=== PATIENT | male | born 1965 | race Caucasian/White ===

== ENCOUNTER 2016-07-20 07:43 | Inpatient (IN) | payer MEDICAID ==
[2016-07-20 07:44] VITALS: BMI 31.5
[2016-07-20 08:37] LABS: BASO # 0.1 K/uL (0.0-0.2); BASO % 1.3 % (0.0-2.0); EOS # 0.1 K/uL (0.0-0.7); EOS % 1.6 % (0.0-4.0); LYMPH % 21.3 % (20.0-40.0); MEAN CORPUSCULAR HEMOGLOBIN 27.7 pg (27.0-31.0); MEAN CORPUSCULAR HGB CONC 34.2 g/dL (33.0-37.0); MEAN PLATELET VOLUME 10.2 fL (7.2-11.7); MONO # 0.9 K/uL (0.0-0.8); MONO % 9.4 % (0.0-10.0); NRBC % 0.1 % (0.0-2.0); RED CELL DISTRIBUTION WIDTH 13.7 % (11.5-14.5); WHITE BLOOD COUNT 9.5 K/uL (4.8-10.8)
[2016-07-20 08:50] LABS: CHLORIDE 103 mmol/L (98-107)
[2016-07-20 08:51] LABS: POTASSIUM 3.9 mmol/L (3.6-5.2); SODIUM 135 mmol/L (132-148)
[2016-07-20 08:53] LABS: MEAN CELL VOLUME 81.1 fL (80.0-94.0)
[2016-07-20 08:54] LABS: ALKALINE PHOSPHATASE 62 U/L (38-126); ALT/SGPT 94 U/L (21-72); AST/SGOT 37 U/L (17-59); BILIRUBIN,TOTAL 0.9 mg/dL (0.2-1.3); BLOOD UREA NITROGEN 21 mg/dL (9-20); CALCIUM 8.8 mg/dl (8.6-10.4); CARBON DIOXIDE 22 mmol/L (22-30); GFR AFRICAN-AMERICAN > 60; GLUCOSE,RANDOM 169 mg/dL (75-110)
[2016-07-20 08:55] LABS: RBC URINE 2 /hpf (0-3); URINE BILIRUBIN NEGATIVE (NEGATIVE); URINE BLOOD NEGATIVE (NEGATIVE); URINE COLOR Yellow (YELLOW); URINE GLUCOSE (UA) NORMAL (Normal); URINE KETONE TRACE mg/dL (NEGATIVE); URINE LEUKOCYTE ESTERASE TRACE Leu/uL (Negative); URINE PROTEIN NEGATIVE (NEGATIVE); URINE UROBILINOGEN NORMAL mg/dL (0.2-1.0); WBC URINE 6 /hpf (0-5)
[2016-07-20 08:56] LABS: ALB/GLOB RATIO 2.2 (1.0-2.1)
[2016-07-20] MEDS ORDERED: METHYLPREDNISOLONE IV ONE (09:11)
[2016-07-20] MEDS ORDERED: SODIUM CHLORIDE 0.9% IV ONE (09:11)
[2016-07-20] MEDS ORDERED: MethylPREDNISolone 40 mg Vial ONE (09:29)
--- NOTE | 2016-07-20 09:47 | C.PDOC ---
History Of Present Illness A 51 year old male presents to the emergency room with complaints of gingival bleeding and right leg pain s/p a mechanical fall yesterday. Patient reports that he has a small bruise on the right leg. Patient states that he has history of low platelets once a year for the last 4-5 years and is unsure of the cause. Patient is not on any medications. Patient denies any ETOH use, fever, chills, headaches, dizziness, mouth pain, mouth swelling, or any other complaints. Time Seen by Provider: 07/20/16 07:53 Chief Complaint (Nursing): Lower Extremity Problem/Injury History Per: Patient History/Exam Limitations: no limitations Onset/Duration Of Symptoms: Days (1) Current Symptoms Are (Timing): Still Present Severity: Mild Recent travel outside of the [place]: No Past Medical History Reviewed: Historical Data, Nursing Documentation, Vital Signs Vital Signs: Last Vital Signs Temp 98 F 07/22/16 08:00 Pulse 92 H 07/22/16 08:30 Resp 20 07/22/16 08:00 BP 147/86 07/22/16 08:00 Pulse Ox 98 07/22/16 08:00 - Medical History Other PMH: Thrombocytopenia - [facility] Procedures INJECTION OR INFUSION OF IMMUNOGLOBULIN (02/23/13) PLATELET TRANSFUSION (02/23/13) Family History: States: No Known Family Hx - Social History Hx Tobacco Use: No Hx Alcohol Use: No Hx Substance Use: No Review Of Systems Constitutional: Negative for: Fever, Chills ENT: Positive for: Other (Gingival bleeding) Gastrointestinal: Negative for: Nausea, Vomiting, Diarrhea Musculoskeletal: Positive for: Leg Pain (Right leg pain) Skin: Positive for: Bruising (Small bruise on the right leg) Neurological: Negative for: Headache, Dizziness Physical Exam - Physical Exam Appears: Non-toxic Skin: Warm, Dry, No Rash Head: Atraumatic, Normacephalic Gingiva: No Bleeding Cardiovascular: Rhythm Regular Respiratory: Normal Breath Sounds, No Rales, No Rhonchi, No Wheezing Gastrointestinal/Abdominal: Soft, No Tenderness Extremity: Normal ROM, No Tenderness, Swelling (Moderate swelling with palpable firm mass to the medial right thigh. 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 I have reviewed the chart and agree that the record accurately reflects my personal performance of the history, physical exam, medical decision making, and the department course for this patient. I have also personally directed, reviewed, and agree with the discharge instructions and disposition.
[2016-07-20] MEDS ORDERED: SODIUM CHLORIDE 0.9% IVPB ONE (10:00)
[2016-07-20] MEDS ORDERED: METHYLPREDNISOLONE IVPB ONE (10:00)
--- NOTE | 2016-07-20 13:01 | CP.PCM.HP ---
History of Present Illness - History of Present Illness History of Present Illness: ptadmited fromed for has bleeding gum low blood platletlet and fell has small contusion thigh Present on Admission - Present on Admission Any Indicators Present on Admission: No Review of Systems - Review of Systems Systems not reviewed;Unavailable: Acuity of Condition - Constitutional Constitutional: As Per HPI - EENT Eyes: As Per HPI Ears: As Per HPI Nose/Mouth/Throat: As Per HPI - Cardiovascular Cardiovascular: As Per HPI - Respiratory Respiratory: As Per HPI - Gastrointestinal Gastrointestinal: As Per HPI - Genitourinary Genitourinary: As Per HPI - Reproductive: Male Reproductive:Male: As Per HPI - Musculoskeletal Musculoskeletal: As Per HPI - Integumentary Integumentary: As Per HPI - Neurological Neurological: As Per HPI - Psychiatric Psychiatric: As Per HPI - Endocrine Endocrine: As Per HPI - Hematologic/Lymphatic Hematologic: Easy Bruising Past Patient History - Infectious Disease Hx of Infectious Diseases: None - Past Social History Smoking Status: Never Smoked - PSYCHIATRIC Hx Substance Use: No - SURGICAL HISTORY Hx Surgeries: No - ANESTHESIA Hx Anesthesia: No Meds Allergies/Adverse Reactions: Allergies Allergy/AdvReac Type Severity Reaction Status Date / Time No Known Allergies Allergy Verified 07/20/16 07:46 Results - Vital Signs Recent Vital Signs: Last Vital Signs Temp 97.6 F 07/20/16 11:34 Pulse 90 07/20/16 11:34 Resp 16 07/20/16 11:34 BP 118/80 07/20/16 11:34 Pulse Ox 96 07/20/16 12:08 - Labs Result Diagrams: 07/20/16 08:32 07/20/16 08:32 Assessment & Plan - Assessment and Plan (Free Text) Assessment: ac gum lleeding s/p fall contusion thigh thrombocytheamia Plan: as per orders - Date & Time Date: 07/20/16 Time: 13:03
[2016-07-20] MEDS: MethylPREDNISolone 40 mg Vial IVP SCH (21:33)
--- NOTE | 2016-07-21 01:06 | CP.PCM.CON ---
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 The patient reports to brushing his teeth and noticed bleeding with blood clots coming from his gums. He also notes to a large bruise over his arm after a recent fall. In the ER, the patient was found to have a plt count of 5,000 and admitted. He is currently receiving steroids and his plt count has risen to 24,000. He denies further bleeding. Past medical history: ITP Past surgical history: None Family history: Denies hematologic and oncologic problems Social history: Denies tobacco, alcohol, and illicit drug use. Allergies: NKA Review of systems: All remaining review of systems including HEENT, cardiovsacular, respiratory, gastrointestinal, genitourinary, musculoskeletal, dermatologic, neurologic, and psychiatric are negative unless mentioned in the HPI. Past Patient History - Infectious Disease Hx of Infectious Diseases: None - Past Medical History & Family History Past Medical History?: Yes - Past Social History Smoking Status: Never Smoked - CARDIAC Hx Cardiac Disorders: No - HEMATOLOGICAL/ONCOLOGICAL Hx Anemia: Yes () Hx Blood Transfusions: Yes (platelet transfusion 2012) Hx Blood Transfusion Reaction: No Hx Gum Bleeding: Yes - MUSCULOSKELETAL/RHEUMATOLOGICAL Hx Falls: Yes - GENITOURINARY/GYNECOLOGICAL Hx Hematuria: Yes () - PSYCHIATRIC Hx Substance Use: No - SURGICAL HISTORY Hx Surgeries: No - ANESTHESIA Hx Anesthesia: No Meds Allergies/Adverse Reactions: Allergies Allergy/AdvReac Type Severity Reaction Status Date / Time No Known Allergies Allergy Verified 07/20/16 07:46 - Medications Medications: Current Medications Famotidine (Pepcid) 40 mg PO DAILY [facility] Methylprednisolone (Solu-Medrol) 40 mg IVP Q12 [facility] Last Admin: 07/20/16 21:33 Dose: 40 mg Pneumococcal Polyvalent Vaccine (Pneumovax 23 Vaccine) 0.5 ml IM .ONCE ONE Stop: 07/22/16 10:01 Physical Exam - Head Exam Head Exam: ATRAUMATIC - Eye Exam Eye Exam: Normal appearance - ENT Exam ENT Exam: Mucous Membranes Dry - Respiratory Exam Respiratory Exam: NORMAL BREATHING PATTERN - Cardiovascular Exam Cardiovascular Exam: +S1, +S2 - GI/Abdominal Exam GI & Abdominal Exam: Normal Bowel Sounds - Extremities Exam Extremities exam: Positive for: normal inspection - Neurological Exam Neurological exam: Oriented x3 - Psychiatric Exam Psychiatric exam: Normal Affect, Normal Mood - Skin Skin Exam: Warm Results - Vital Signs Recent Vital Signs: Last Vital Signs Temp 98.1 F 07/20/16 16:00 Pulse 116 H 07/20/16 16:00 Resp 20 07/20/16 16:00 BP 132/81 07/20/16 16:00 Pulse Ox 96 07/20/16 16:00 - Labs Result Diagrams: 07/21/16 08:30 07/20/16 08:32 Assessment & Plan (1) Idiopathic thrombocytopenia purpura Assessment and Plan: Complicated by gingival bleeding and ecchymosis pt responding to steroids pt cleared from hematology standpoint tomorrow if plt >20,000 I have ordered oral prednisone and Pepcid from his local outpatient pharmacy he is to f/u with me Saturday for repeat CBC and steroid taper if plt have normalized Thank you for this interesting consult. Status: Acute
[2016-07-21 08:37] LABS: HEMATOCRIT 40.3 % (35.0-51.0); MEAN CORPUSCULAR HEMOGLOBIN 27.5 pg (27.0-31.0)
[2016-07-21 08:48] LABS: MEAN PLATELET VOLUME 12.2 fL (7.2-11.7); RED CELL DISTRIBUTION WIDTH 13.4 % (11.5-14.5)
[2016-07-21] MEDS: MethylPREDNISolone 40 mg Vial IVP SCH (09:59)
[2016-07-21 13:28] LABS: RBC URINE 1 /hpf (0-3); URINE BILIRUBIN NEGATIVE (NEGATIVE); URINE BLOOD NEGATIVE (NEGATIVE); URINE COLOR Yellow (YELLOW); URINE GLUCOSE (UA) 3+ mg/dL (Normal); URINE KETONE NEGATIVE (NEGATIVE); URINE LEUKOCYTE ESTERASE NEG Leu/uL (Negative); URINE PROTEIN NEGATIVE (NEGATIVE); URINE UROBILINOGEN NORMAL mg/dL (0.2-1.0); WBC URINE 2 /hpf (0-5)
--- NOTE | 2016-07-21 14:01 | RAD ---
Chest x-ray two views History: Leukocytosis. Comparison: None available. Findings: Mild venous congestion. Right basilar atelectasis. Heart size within normal limits. Impression: Mild venous congestion. Right basilar atelectasis.
[2016-07-21] MEDS: methylPREDNISolone 500 MG in Sodium Chloride 0.9% 100 ML IVPB SCH (22:26)
[2016-07-22 07:53] LABS: HEMATOCRIT 39.8 % (35.0-51.0); MEAN CELL VOLUME 81.6 fL (80.0-94.0); MEAN CORPUSCULAR HEMOGLOBIN 27.3 pg (27.0-31.0); MEAN CORPUSCULAR HGB CONC 33.4 g/dL (33.0-37.0); RED CELL DISTRIBUTION WIDTH 13.8 % (11.5-14.5)
[2016-07-22 09:16] VITALS: BP 147/86; RESP 20; TEMP 98
[2016-07-22] MEDS ORDERED: Pneumococcal 23-Valent Vaccine IM ONE (10:00)
[2016-07-22] MEDS: methylPREDNISolone 500 MG in Sodium Chloride 0.9% 100 ML IVPB SCH (10:15)
--- NOTE | 2016-07-22 11:11 | CP.PCM.DIS ---
Provider - Provider Date of Admission: 07/20/16 09:43 Attending physician: Elise Wong MD Primary care physician: pt admited for bleeding gum had platlet 5 had hx of throboctheamia befor no f/u pt received steroids iv and platlet improved 73 today pt feel well physical exam normal exept big area of contusion thigh secandry to fall befor admision discused with consult dr lex pantoja pt will cont athome on prednison 100mg po daily f/u by him dx ac itp Time Spent in preparation of Discharge (in minutes): 30 Hospital Course - Lab Results Lab Results: Most Recent Lab Values WBC 26.0 K/uL (4.8-10.8) H 07/22/16 07:45 RBC 4.88 Mil/uL (4.40-5.90) 07/22/16 07:45 Hgb 13.3 g/dL (12.0-18.0) 07/22/16 07:45 Hct 39.8 % (35.0-51.0) 07/22/16 07:45 MCV 81.6 fL (80.0-94.0) 07/22/16 07:45 MCH 27.3 pg (27.0-31.0) 07/22/16 07:45 MCHC 33.4 g/dL (33.0-37.0) 07/22/16 07:45 RDW 13.8 % (11.5-14.5) 07/22/16 07:45 Plt Count 73 K/uL (130-400) L D 07/22/16 07:45 MPV 11.0 fL (7.2-11.7) 07/22/16 07:45 Neut % (Auto) 66.4 % (50.0-75.0) 07/20/16 08:32 Lymph % (Auto) 21.3 % (20.0-40.0) 07/20/16 08:32 [place] % (Auto) 9.4 % (0.0-10.0) 07/20/16 08:32 Eos % (Auto) 1.6 % (0.0-4.0) 07/20/16 08:32 Baso % (Auto) 1.3 % (0.0-2.0) 07/20/16 08:32 Neut # 6.3 K/uL (1.8-7.0) 07/20/16 08:32 Lymph # 2.0 K/uL (1.0-4.3) 07/20/16 08:32 [place] # 0.9 K/uL (0.0-0.8) H 07/20/16 08:32 Eos # 0.1 K/uL (0.0-0.7) 07/20/16 08:32 Baso # 0.1 K/uL (0.0-0.2) 07/20/16 08:32 Differential Comment 07/21/16 08:30 Smear Path Review 07/20/16 08:32 PT 11.8 SECONDS (9.7-12.2) 07/20/16 08:32 INR 1.0 07/20/16 08:32 APTT 32 SECONDS (21-34) 07/20/16 08:32 Sodium 135 mmol/L (132-148) 07/20/16 08:32 Potassium 3.9 mmol/L (3.6-5.2) 07/20/16 08:32 Chloride 103 mmol/L (98-107) 07/20/16 08:32 Carbon Dioxide 22 mmol/L (22-30) 07/20/16 08:32 Anion Gap 15 (10-20) 07/20/16 08:32 BUN 21 mg/dL (9-20) H 07/20/16 08:32 Creatinine 1.2 MG/DL (0.8-1.5) 07/20/16 08:32 Est GFR ( Amer) > 60 07/20/16 08:32 Est GFR (Non-Af Amer) > 60 07/20/16 08:32 Random Glucose 169 mg/dL (75-110) H 07/20/16 08:32 Calcium 8.8 mg/dl (8.6-10.4) 07/20/16 08:32 Total Bilirubin 0.9 mg/dL (0.2-1.3) 07/20/16 08:32 AST 37 U/L (17-59) 07/20/16 08:32 ALT 94 U/L (21-72) H D 07/20/16 08:32 Alkaline Phosphatase 62 U/L (38-126) 07/20/16 08:32 Total Protein 6.0 g/dL (6.3-8.3) L 07/20/16 08:32 Albumin 4.2 g/dL (3.5-5.0) 07/20/16 08:32 Globulin 1.9 gm/dL (2.2-3.9) L 07/20/16 08:32 Albumin/Globulin Ratio 2.2 (1.0-2.1) H 07/20/16 08:32 Urine Color Yellow (YELLOW) 07/21/16 13:21 Urine Clarity Clear (Clear) 07/21/16 13:21 Urine pH 5.0 (5.0-8.0) 07/21/16 13:21 Ur Specific [place] 1.029 (1.003-1.030) 07/21/16 13:21 Urine Protein Negative mg/dL (NEGATIVE) 07/21/16 13:21 Urine Glucose (UA) 3+ mg/dL (Normal) H 07/21/16 13:21 Urine Ketones Negative mg/dL (NEGATIVE) 07/21/16 13:21 Urine Blood Negative (NEGATIVE) 07/21/16 13:21 Urine Nitrate Negative (NEGATIVE) 07/21/16 13:21 Urine Bilirubin Negative (NEGATIVE) 07/21/16 13:21 Urine Urobilinogen Normal mg/dL (0.2-1.0) 07/21/16 13:21 Ur Leukocyte Esterase Neg Hina/uL (Negative) 07/21/16 13:21 Urine WBC (Auto) 2 /hpf (0-5) 07/21/16 13:21 Urine RBC (Auto) 1 /hpf (0-3) 07/21/16 13:21 Ur Squamous Epith Cells 1 /hpf (0-5) 07/21/16 13:21 Hyaline Casts 3-5 /lpf (0-2) H 07/20/16 08:47 Blood Type O POSITIVE 07/20/16 08:32 Antibody Screen Negative 07/20/16 08:32 Discharge Exam - Head Exam Head Exam: ATRAUMATIC Discharge Plan - Follow Up Plan Condition: FAIR Disposition: HOME/ ROUTINE
[2016-07-22 11:53] VITALS: PULSE 92
[2016-07-22 14:39] VITALS: O2SAT 96
== END 2016-07-22 01:00 | disposition home or self-care (01) | DRG 397 ==
LOC: C.ER 07:43 → C.9E 09:43 → C.3T 11:25
PROVIDERS: ADMIT Internal Medicine; ATTEND Internal Medicine
DX: D69.3 Immune thrombocytopenic purpura (principal); K06.8 Other specified disorders of gingiva and edentulous alveolar ridge; R23.3 Spontaneous ecchymoses; S70.11XA Contusion of right thigh, initial encounter; W19.XXXA Unspecified fall, initial encounter; Y92.9 Unspecified place or not applicable; Z23 Encounter for immunization

== ENCOUNTER 2017-01-14 10:54 | Emergency (ER) | payer MEDICAID ==
[2017-01-14 10:54] VITALS: BMI 31.5
[2017-01-14 11:15] VITALS: BP 112/75; PULSE 86; RESP 18; TEMP 97.8; O2SAT 98
--- NOTE | 2017-01-14 12:39 | C.PDOC ---
History Of Present Illness 51 yr old male presents to the ER for evaluation of right knee pain and swelling , gradually developing for the past 3 days. Patient states the pain localized and mostly to the medial aspect of the knee. Patient states the pain is worse with walking. Denies known direct trauma or injury, fever, denies obvious deformity, weakness , sensory or vascular deficits to the right leg, denies calf pain, no risk factors for DVT or PE. Time Seen by Provider: 01/14/17 11:28 Chief Complaint (Nursing): Lower Extremity Problem/Injury History Per: Patient History/Exam Limitations: no limitations Onset/Duration Of Symptoms: Days (3) Current Symptoms Are (Timing): Still Present Past Medical History Reviewed: Historical Data, Nursing Documentation, Vital Signs Vital Signs: Last Vital Signs Temp 97.8 F 01/14/17 11:12 Pulse 86 01/14/17 11:12 Resp 18 01/14/17 11:12 BP 112/75 01/14/17 11:12 Pulse Ox 98 01/14/17 12:51 - Medical History PMH: Anemia () - [facility] Procedures INJECTION OR INFUSION OF IMMUNOGLOBULIN (02/23/13) PLATELET TRANSFUSION (02/23/13) Family History: States: No Known Family Hx - Social History Hx Tobacco Use: No Hx Alcohol Use: No Hx Substance Use: No - Immunization History Hx Tetanus Toxoid Vaccination: No Hx Influenza Vaccination: Yes Hx Pneumococcal Vaccination: No Review Of Systems Except As Marked, All Systems Reviewed And Found Negative. Constitutional: Negative for: Fever Musculoskeletal: Positive for: Other ((+) Right knee pain and swelling.) Neurological: Negative for: Weakness, Numbness Physical Exam - Physical Exam Appears: Well, Non-toxic, No Acute Distress Skin: Normal Color, Warm, No Rash, No Ecchymosis Extremity: Normal ROM (mild discomfort to Right knee flexion, otherwise FAROMN of Right knee. NO neurovascular deficits.), Tenderness (over medial aspect Right knee with mild effusion. No deformity, no cellulitis, no warm to touch.), No Pedal Edema, No Calf Tenderness, Capillary Refill (less than 2sec to Right foot), No Deformity Neurological/Psych: Oriented x3, Normal Speech, Normal Motor, Normal Sensation, Normal Reflexes ED Course And Treatment O2 Sat by Pulse Oximetry: 98 (RA) Pulse Ox Interpretation: Normal - Other Rad X-Ray - Right Knee X-Ray: Interpreted by Me, Viewed By Me Interpretation: (+) mild DJD with effusion, no acute fx Progress Note: On re-eavluation, pt is afebrile, hemodynamicaly stable. Non- toxic. Right knee: exam c/w Right knee arthralgia with mild effusion. No deformity, no cellulitis. FAROM, no neurovascular deficits. XRay review (+) Mild DJD, no acute fx. Jay wrap applied to Right knee, anti-inflammatory given. Pt advised on course of ds. ref. to F/u with Ortho in 2-3 days for re- eval. return if any new changes. Medical Decision Making Medical Decision Making: PLAN: * X-Ray - Right Knee * Tramadol PO * Prednisone PO Disposition Counseled Patient/Family Regarding: Studies Performed, Diagnosis, Need For Followup, Rx Given - Disposition Referrals: [facility] [Outside] Malcolm Yun III, MD [Staff Provider] - Disposition: HOME/ ROUTINE Disposition Time: 12:30 Condition: STABLE Additional Instructions: LIGHT DUTY TO RIGHT KNEE, AVOID KNEE BENDING/STEPS, ETC. JAY WRAP OR KNEE BRACE FOR 1-2 WEEKS TAKE MEDICATION PRESCRIBED FOLLOW UP WITH ORTHOPEDIST IN 2-3 DAYS FOR RE-EVALUATION. RETURN TO ED IF ANY WORSENING OR NEW CHANGES. Prescriptions: Prednisone [Deltasone] 20 mg PO DAILY #3 tablet traMADol [Ultram] 50 mg PO TID #7 tab Instructions: Swollen Knee Joint (ED), Knee Pain (ED) Forms: [facility] ([place]err[place]ian), Work Excuse - Clinical Impression Clinical Impression: Arthralgia of knee, Effusion of knee - PA / ASSET COORDINATOR / Resident Statement MD/DO has reviewed & agrees with the documentation as recorded. - Scribe Statement The provider has reviewed the documentation as recorded by the Scribe Ana Chavez All medical record entries made by the Scribe were at my direction and personally dictated by me. I have reviewed the chart and agree that the record accurately reflects my personal performance of the history, physical exam, medical decision making, and the department course for this patient. I have also personally directed, reviewed, and agree with the discharge instructions and disposition.
--- NOTE | 2017-01-14 16:41 | RAD ---
PROCEDURE: Right Knee Radiographs. HISTORY: pain COMPARISON: None. FINDINGS: BONES: Normal. No fracture. JOINTS: Minimal narrowing of medial joint compartment. Lateral and patellofemoral compartments are preserved. JOINT EFFUSION: Trace joint effusion. OTHER FINDINGS: None. IMPRESSION: No acute fracture. Minimal medial osteoarthritis.
== END 2017-01-14 13:17 | disposition home or self-care (01) ==
LOC: C.ER 10:54
DX: M25.561 Pain in right knee (principal); M25.461 Effusion, right knee

== ENCOUNTER 2018-02-27 14:26 | Emergency (ER) | payer MEDICAID ==
[2018-02-27 14:26] VITALS: BMI 31.5
--- NOTE | 2018-02-27 16:17 | C.PDOC ---
History Of Present Illness 52 year old male presents to the emergency department with complaints of left lower rib pain, associated with coughing and sneezing for the last 2-3 days. Patient denies injury, rash, fever, nausea, vomiting, chest pain, and shortness of breath. Time Seen by Provider: 02/27/18 14:55 Chief Complaint (Nursing): Abdominal Pain History Per: Patient History/Exam Limitations: no limitations Onset/Duration Of Symptoms: Days (2-3) Current Symptoms Are (Timing): Still Present Quality Of Discomfort: "Pain" Associated Symptoms: Other (coughing, sneezing, rib pain). denies: Fever, Nausea, Vomiting, Chest Pain Exacerbating Factors: Cough Past Medical History Reviewed: Historical Data, Nursing Documentation, Vital Signs Vital Signs: Last Vital Signs Temp 98.0 F 02/27/18 14:49 Pulse 98 H 02/27/18 14:49 Resp 19 02/27/18 14:49 BP 132/87 02/27/18 14:49 Pulse Ox 96 02/27/18 14:49 - Medical History PMH: Anemia () Surgical History: No Surg Hx - [facility] Procedures INJECTION OR INFUSION OF IMMUNOGLOBULIN (02/23/13) PLATELET TRANSFUSION (02/23/13) Family History: States: No Known Family Hx - Social History Hx Tobacco Use: No Hx Alcohol Use: No Hx Substance Use: No - Immunization History Hx Tetanus Toxoid Vaccination: No Hx Influenza Vaccination: Yes Hx Pneumococcal Vaccination: No Review Of Systems Constitutional: Negative for: Fever ENT: Positive for: Other (sneezing) Cardiovascular: Negative for: Chest Pain Respiratory: Positive for: Cough. Negative for: Shortness of Breath Gastrointestinal: Negative for: Nausea, Vomiting Musculoskeletal: Positive for: Other (left lower rib pain) Skin: Negative for: Rash Physical Exam - Physical Exam Appears: Non-toxic, No Acute Distress Skin: Warm, Dry Head: Atraumatic, Normacephalic Eye(s): bilateral: Normal Inspection Neck: Normal, Supple Chest: Tenderness (tenderness to palpation at the left rib 11-12 area at the anterior axillary line) Cardiovascular: Rhythm Regular, No Murmur Respiratory: Normal Breath Sounds, No Rales, No Rhonchi, No Wheezing Gastrointestinal/Abdominal: Soft, No Tenderness Extremity: Normal ROM Neurological/Psych: Oriented x3 ED Course And Treatment O2 Sat by Pulse Oximetry: 96 (RA) Pulse Ox Interpretation: Normal - Other Rad XR Ribs and Chest X-Ray: Viewed By Me, Read By Radiologist Interpretation: No infiltrates or rib fractures visualized. Progress Note: Plan: XR Ribs and Chest Disposition Counseled Patient/Family Regarding: Diagnosis, Need For Followup, Rx Given - Disposition Referrals: Davidson Chaudhary MD [Medical Doctor] - Disposition: HOME/ ROUTINE Disposition Time: 16:10 Condition: STABLE Additional Instructions: FOLLOW UP WITH YOUR DOCTOR IN 1-2 DAYS USE MEDICATION NEEDED RETURN TO ER IF SYMPTOMS WORSEN Prescriptions: Naproxen 375 mg PO BID PRN #20 tablet PRN Reason: pain Instructions: Costochondritis (DC) Forms: [employer]™ Audio (Chinese) Print Language: PERUVIAN - Clinical Impression Clinical Impression: Costochondritis, acute - Scribe Statement The provider has reviewed the documentation as recorded by the Scribe (Cornelius Pedersen) Provider Attestation: All medical record entries made by the Scribe were at my direction and personally dictated by me. I have reviewed the chart and agree that the record accurately reflects my personal performance of the history, physical exam, medical decision making, and the department course for this patient. I have also personally directed, reviewed, and agree with the discharge instructions and disposition.
--- NOTE | 2018-02-27 16:28 | RAD ---
Date of service: 02/27/2018 PROCEDURE: Radiographs of the Chest and Left Ribs. HISTORY: LEFT LOWER RIB PAIN COMPARISON: 07/21/2016. TECHNIQUE: Frontal radiograph of the chest and multiple oblique radiographs of the left ribs were obtained. FINDINGS: LEFT RIBS: No fracture or focal lesion visualized. LUNGS: Clear. PLEURA: No pneumothorax or pleural fluid. CARDIOVASCULAR: Normal cardiac size. No pulmonary vascular congestion. There is absence of aortic atherosclerotic calcification on x-ray. OTHER FINDINGS: None. IMPRESSION: Unremarkable radiographs of the chest and left ribs. No left rib fracture.
[2018-02-27 16:32] VITALS: BP 120/86; PULSE 86; RESP 16; TEMP 97.6
[2018-02-27 18:07] VITALS: O2SAT 96
== END 2018-02-27 16:36 | disposition home or self-care (01) ==
LOC: C.ER 14:26
DX: M94.0 Chondrocostal junction syndrome [Tietze] (principal)